=== PATIENT | female | born 1955 | race Caucasian/White ===

== ENCOUNTER → 2021-08-12 10:47 | Outpatient (CLI) | payer OTHER, SELFPAY ==
--- NOTE | ~2021-08-12 | US_ITS ---
EXAMINATION: US soft tissue chest INDICATION: Soft tissue swelling of the chest wall TECHNIQUE: Targeted high-resolution ultrasound is performed in the area of clinical concern. COMPARISON: None available FINDINGS: No sonographic correlate is identified for the reported soft tissue abnormality of the ches t wall. There is no suspicious cystic or solid mass. Normal subcutaneous tissues are identified. IMPRESSION: 1. No sonographic correlate for the patient's area of swelling. Reviewed, dictated and finalized at location F.
== END ==
PROVIDERS: PCP Physician Assistant; Visit Provider Physician Assistant
DX: R22.2 Localized swelling, mass and lump, trunk (principal)
CPT/HCPCS: 76604

== ENCOUNTER 2021-11-24 15:27 | Outpatient (CLI) | payer OTHER, SELFPAY ==
--- NOTE | ~2021-11-24 | DEXA_ITS ---
Bone Density Report Name: CUCO BEASLEY Age: 66 Sex: Female Ethnicity: White Date of : 1955 Indication: postmenopausal; screening for osteoporosis; height loss; cancer; Referring Provider: KAMERON VANEGAS Study: Bone densitometry was performed. Exam Date: November 24, 2021 Accession number: [id number] Bone Density: Region BMD T-score Z-score Classification AP Spine(L1-L4) 1.155 1.0 2.7 Normal Femoral Neck (Left) 0.846 0.0 1.5 Normal Total Hip (Left) 1.063 1.0 2.2 Normal Femoral Neck (Right) 0.851 0.0 1.5 Normal Total Hip (Right) 1.054 0.9 2.1 Normal Total Hip Mean 1.058 1.0 2.2 Normal World Health Organization criteria for BMD impression classify patients as: Normal (T-score at or above -1.0), Osteopenia (T-score between -1.0 and -2.5), or Osteoporosis (T-score at or below -2.5). 10-year Fracture Risk: FRAX not reported because: All T-scores for Spine Total, Hip Total, Femoral Neck at or above -1.0 Clinical Information Provided by Patient: Has used the following medications: Vitamin D Has the following medical conditions: Cancer Patient maximum height was 69.5 Menopause Age: 50 Onset of menses at age 16 Number of children 0 Impression: The patient has normal bone mass. Discussion: BONE DENSITY IS ABOVE THE MINIMUM DESIRABLE LEVEL AT ALL SKELETAL SITES TESTED. This patient?s bone mineral density is above the minimum desirable level (T-score -1.0 or better) at all sites measured. The patient should follow a healthful lifestyle (good nutrition with adequate calcium and vitamin D, and appropriate weight-bearing exercise). Follow-Up: Consider repeating this study in 5 years or sooner if there is some new clinical indication. Reported by: LINDSEY on 11/24/2021 3:43:00 PM. Reviewed, dictated and finalized at location [facility]
== END 2021-11-24 15:28 | disposition home or self-care (01) ==
LOC: ANHIMG 15:28
PROVIDERS: PCP Family Medicine Sports Medicine; Visit Provider Obstetrics & Gynecology
DX: Z78.0 Asymptomatic menopausal state (principal)
CPT/HCPCS: 77080